=== PATIENT | female | born 2000 | race Caucasian/White ===

== ENCOUNTER 2021-01-12 07:04 | Emergency (ER) | payer OTHER ==
[~2021-01-12] VITALS: Ht 157.5 cm; Wt 65.0 kg
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
[2021-01-12 08:48] VITALS: BP 119/67
== END 2021-01-12 08:53 | disposition home or self-care (01) ==
LOC: EDBD 07:04 → M ED 07:04
DX: S20.212A Contusion of left front wall of thorax, initial encounter (principal); V43.52XA Car driver injured in collision with other type car in traffic accident, initial encounter; Y92.9 Unspecified place or not applicable; Y93.9 Activity, unspecified; Y99.9 Unspecified external cause status

== ENCOUNTER → 2023-10-27 | Outpatient (CLI) | payer OTHER | LOC: M RAD 13:14 | PROVIDERS: ATTEND Physician Assistant | DX: N91.2 Amenorrhea, unspecified (principal) ==